=== PATIENT | female | born 1990 | race Hispanic/Latino ===

== ENCOUNTER 2019-04-09 13:30 | Day surgery (SDC) | payer SELFPAY ==
[~2019-04-09 13:30] MED LIST: Dexamethasone 20 MG/5 ML VIAL ONE; Glycopyrrolate 0.2 MG/ML 5 ML SYRINGE ONE; Lidocaine 1% PF 5 ML VIAL ONE; Ondansetron PF 4 MG/2 ML Vial ONE; PROPOFOL 200 MG/20 ML VIAL ONE; Rocuronium Bromide 10 MG/ML (10ML VIAL) ONE
--- NOTE | 2019-04-09 14:26 | ULT ---
RIGHT UPPER QUADRANT ULTRASOUND CLINICAL HISTORY: Right upper quadrant pain. COMPARISON: CT the abdomen and pelvis dated April 09, 2019 FINDINGS: Liver:Normal echotexture without focal mass. Bile ducts: No intrahepatic or extrahepatic biliary dilation.; common bile duct: 0.56cm. Gallbladder: Numerous stones. No gallbladder wall thickening or pericholecystic fluid is evident. Beard's sign:Positive Main portal vein:Patent with hepatopedal flow. Pancreas: Visualized pancreas appears normal. Right kidney: No pelvicalyceal dilatation. Right kidney measures 13.1 x 5.3 x 5.4 cm. Additional findings: None. IMPRESSION: Cholelithiasis with reportedly positive sonographic Beard's sign is equivocal for acute cholecystiti s. No gallbladder wall thickening or pericholecystic fluid is evident. If clinically indicated a HIDA scan may be helpful for further characterization.
[2019-04-09] MEDS ORDERED: Bupivacaine HCl 0.5%/Epinephrine 1:200,000/PF 30 ml Vial ONE ×2 (16:41→16:50)
[2019-04-09] MEDS ORDERED: Midazolam HCl 2 mg/2 ml Vial ONE (16:46)
[2019-04-09] MEDS ORDERED: HYDROmorphone 0.5 MG/0.5 ML SYRINGE ONE (16:46)
[2019-04-09] MEDS ORDERED: Fentanyl 100 MCG/2 ML VIAL ONE ×3 (16:46→18:38)
[2019-04-09] MEDS ORDERED: Ketorolac Tromethamine 30 MG/ML VIAL ONE (17:27)
--- NOTE | 2019-04-09 17:40 | HP ---
HISTORY OF PRESENT ILLNESS: Naomi Ryan is a 28-year-old female, presents to the emergency room with right upper quadrant pain, back radiation, nausea for 3 days. She has had intermittent biliary symptoms for 3 years. She has normal liver function test, normal hemoglobin and white count, and her abdominal ultrasound reveals gallstones with normal bile duct caliber. ALLERGIES: NONE. TOBACCO: None. ALCOHOL: None. MEDICATIONS: None. PAST SURGICAL HISTORY: Bilateral tubal ligation, 3 C-sections. PAST MEDICAL HISTORY: Noncontributory. REVIEW OF SYSTEMS: Noncontributory. Family is with her. FAMILY HISTORY: Noncontributory. PHYSICAL EXAMINATION: VITAL SIGNS: Weight 86 kg. Blood pressure 119/81, pulse 72, respiratory rate 15, temperature 98.5 degrees. HEAD, EARS, EYES, NOSE, AND THROAT: Unremarkable. LUNGS: Clear to auscultation. CARDIAC: Regular rate and rhythm without murmur or gallop. ABDOMEN: Soft. Tenderness in right upper quadrant. No guarding or rebound. EXTREMITIES: Unremarkable. ASSESSMENT AND PLAN: Acute cholecystitis, cholelithiasis. Recommend laparoscopic video cholecystectomy. Risks of infection, bleeding, visceral injury, re-operation discussed, she consents. Job ID: [id number]
[2019-04-09] MEDS ORDERED: SUGAMMADEX SODIUM 200 MG/2 ML VIAL ONE (18:07)
[2019-04-09] MEDS ORDERED: Morphine 4 MG/ML VIAL ONE (18:39)
[2019-04-09] MEDS ORDERED: Meperidine HCl/PF 25 MG/ML VIAL ONE (18:58)
[2019-04-09] MEDS ORDERED: HYDROcodone/Acetaminophen 5/325 mg Tablet ONE (19:50)
--- NOTE | 2019-04-09 20:31 | OP ---
DATE OF PROCEDURE: 04/09/2019 PREOPERATIVE DIAGNOSES: Acute on chronic cholecystitis and cholelithiasis. POSTOPERATIVE DIAGNOSES: Acute on chronic cholecystitis and cholelithiasis. PROCEDURE PERFORMED: Laparoscopic video cholecystectomy. ANESTHESIA: General, local 0.5% Marcaine with epinephrine 30 mL. DESCRIPTION OF PROCEDURE: The patient was taken to the operating room, where under general anesthesia, abdomen was prepared with ChloraPrep and draped in routine fashion. Local anesthetic was infiltrated in the skin and subcutaneous tissue about the operative sites. Infraumbilical incision was made. Pneumoperitoneum to 15 mmHg was obtained with a Veress needle, replaced with a 5 port, and video laparoscope inserted. Remainder of ports placed under laparoscopic visualization. Right subxiphoid incision was made and 11 port was placed. Right subcostal incision was made at midclavicular entrance line and the 5 port was placed. Liver appeared to be normal. Gallbladder and fundus grasped at the cephalad. Infundibulum grasped and reflected laterally. Cystic artery and duct dissected free. Critical view obtained. Cystic artery and duct double clipped proximally and divided. Gallbladder dissected free from liver bed obtaining good hemostasis prior to division of the final peritoneal attachments. Gallbladder and contents were removed and submitted to Pathology. Good hemostasis was assured. Irrigant and pneumoperitoneum were evacuated. All instruments were removed and all skin incisions were approximated with interrupted subdermal 4-0 Monocryl and [place] glue applied. The patient tolerated the procedure well. Job ID: [id number]
== END 2019-04-09 20:30 | disposition home or self-care (01) ==
LOC: ERS 13:30
PROVIDERS: ATTEND Specialist
PROC: 0FT44ZZ Resection of Gallbladder, Percutaneous Endoscopic Approach (ICD-10-PCS; principal; 2019-04-09)
DX: K80.12 Calculus of gallbladder with acute and chronic cholecystitis without obstruction (principal)
CPT/HCPCS: 76705; 88304; 96365; J0131; J0670; J1100; J1170; J1885; J1956; J2001; J2175; J2250; J2270; J2405; J2704; J3010